=== PATIENT | female | born 2005 | race Two or more races ===

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

== ENCOUNTER 2025-01-15 11:58 | Inpatient (IN) | payer MEDICAID ==
[2025-01-15] VITALS (7 sets, daily range): BP systolic 107–116; BP diastolic 60–74; PULSE 77–111; RESP 15–21; TEMP 97.1–98.1; O2SAT 96–100
[~2025-01-15] VITALS: Ht 160 cm; Wt 74.4 kg
--- NOTE | 2025-01-15 12:20 | ED.PDOC ---
History of Present Illness HPI Comments 19 y/o F, with PMHx of anemia presents to the ED for CC of abnormal labs. Patient reports, that she had labs drawn on 01/11/25 and received a call today (01/15/25) to follow up with the ED for a blood transfusion d/t a low Hbg reading of 7.0. Patient states, that she has been experiencing symptoms of fatigue and weakness for the past x1week. Patient denies active bleeding, current menstruation, nausea, melena, or hematemesis. No other symptoms or modifying factors. Chief Complaint: Abnormal LAB's Time Seen by MD: 12:15 Reviewed Notes: Nurses Notes, Medications, Allergies Allergies: Coded Allergies: NO KNOWN ALLERGIES (Unverified , 07/08/22) Information Source: Patient Mode of Arrival: Ambulatory Severity: Moderate Timing: Days Duration: Since onset Prehospital treatment: None Past Medical History PAST MEDICAL HISTORY: Anemia Surgical History: Denies all surgeries ACID CUTTER History: No Pertinent ACID CUTTER History Family History Family History: Reviewed,noncontributory to illness Social History Smoker: Non-Smoker Alcohol: Denies ETOH Use Drugs: Denies Drug Use Lives In: Home Constitutional: reports: fatigue, weakness; denies: chills, diaphoresis, fever, malaise, sweats, others EENTM: denies: blurred vision, double vision, ear bleeding, ear discharge, ear drainage, ear pain, ear ringing, eye pain, eye redness, hearing loss, mouth pain, mouth swelling, nasal discharge, nose bleeding, nose congestion, nose pain, photophobia, tearing, throat pain, throat swelling, voice changes, others Respiratory: denies: cough, hemoptysis, orthopnea, SOB at rest, shortness of breath, SOB with excertion, stridor, wheezing, others Cardiovascular: denies: chest pain, dizzy spells, diaphoresis, Dyspnea on exertion, edema, irregular heart beat, left arm pain, lightheadedness, palpitations, PND, syncope, others Gastrointestinal: denies: abdomen distended, abdominal pain, blood streaked bowels, constipated, diarrhea, dysphagia, difficulty swallowing, hematemesis, melena, nausea, poor appetite, poor fluid intake, rectal bleeding, rectal pain, vomiting, others Genitourinary: denies: abnormal vagina bleeding, burning, dyspareunia, dysuria, flank pain, frequency, hematuria, incontinence, pain, , vagina discharge, urgency, others Neurological: denies: dizziness, fainting, headache, left sided numbness, left sided weakness, numbness, paresthesia, pre-existing deficit, right sided numbness, right sided weakness, seizure, speech problems, tingling, tremors, weakness, others Musculoskeletal: denies: back pain, gout, joint pain, joint swelling, muscle pain, muscle stiffness, neck pain, others Integumetry: denies: bruises, change in color, change in hair/nails, dryness, laceration, lesions, lumps, rash, wounds, others Allergic/Immunocompromised: denies: Difficulty Healing, Frequent Infections, Hives, Itching, others Hematologic/Lymphatic: denies: anemia, blood clots, easy bleeding, easy bruising, swollen glands, others Endocrine: denies: excessive hunger, excessive sweating, excessive thirst, excessive urination, flushing, intolerance to cold, intolerance to heat, unexplained weight gain, unexplained weight loss, others Psychiatric: denies: anxiety, bipolar disorder, depression, hopeless, panic disorder, schizophrenia, sleepless, suicidal, others All Other Systems: Reviewed and Negative Physical Exam General Appearance: Moderate Distress HEENT: Pale Conjuntivae (L), Pale Conjuntivae (R), Pharynx Normal, TMs Normal Neck: Full Range of Motion, Non-Tender, Normal, Normal Inspection Respiratory: Chest Non-Tender, Lungs Clear, No Accessory Muscle Use, No Respiratory Distress, Normal Breath Sounds Cardiovascular: No Edema, No JVD, No Murmur, No Gallop, Normal Peripheral Pulses, Regular Rate/Rhythm Breast Exam: Deferred Gastrointestinal: No Organomegaly, Non Tender, No Pulsatile Mass, Normal Bowel Sounds, Soft Genitalia: Deferred Pelvic: Deferred Rectal: Deferred Extremities: No calf tenderness, Normal capillary refill, Normal inspection, Normal range of motion, Non-tender, No pedal edema Musculoskeletal : Apperance: Normal Neurologic: Alert, carpenter rough II-XII nml as Tested, Motor Weakness, Normal Affect, Normal Mood, No Sensory Deficits Cerebellar Function: Normal Reflexes: Normal Skin: Dry, Pallor, Warm Lymphatic: No Adenopathy Was a procedure done? Was a procedure done?: No Differential Dx Considerations may include: anemia X-Ray, Labs, Meds, VS Vital Signs Date Time Temp Pulse Resp B/P (MAP) Pulse Ox O2 Delivery O2 Flow Rate FiO2 01/15/25 17:50 97.1 84 15 113/69 (84) 100 97.1 01/15/25 17:50 97.1 84 15 113/69 97.1 01/15/25 17:39 87 17 100 Room Air* 0 21 01/15/25 17:29 97.5 111 21 116/67 97.5 01/15/25 15:50 99.2 80 18 136/52 (80) 100 99.2 01/15/25 12:06 97.7 122 16 145/84 (104) 98 97.7 Lab Test 01/15/25 12:47 01/15/25 12:44 Range/Units White Blood Count 4.2 L 4.4-10.8 10^3/uL Red Blood Count 3.89 L 4.0-5.20 10^6/uL Hemoglobin 7.0 *L 12.2-16.2 g/dL Hematocrit 22.9 L 36.0-46.0 % Mean Corpuscular Volume 58.8 L 80.0-100.0 fL Mean Corpuscular Hemoglobin 17.9 L 28.0-32.0 pg Mean Corpuscular Hemoglobin Concent 30.4 L 32.0-36.0 g/dL Red Cell Distribution Width 17.7 H 11.8-14.3 % Platelet Count 362 140-450 10^3/uL Mean Platelet Volume 6.7 L 6.9-10.8 fL Neutrophils (%) (Auto) 64.3 37.0-80.0 % Lymphocytes (%) (Auto) 26.2 10.0-50.0 % Monocytes (%) (Auto) 6.5 0.0-12.0 % Eosinophils (%) (Auto) 2.4 0.0-7.0 % Basophils (%) (Auto) 0.6 0.0-2.0 % Neutrophils # (Auto) 2.7 1.6-8.6 10 ^3/uL Lymphocytes # (Auto) 1.1 0.4-5.4 10 ^3/uL Monocytes # (Auto) 0.3 0-1.3 10 ^3/uL Eosinophils # (Auto) 0.1 0-0.8 10 ^3/uL Basophils # (Auto) 0 0-0.2 10 ^3/uL Nucleated Red Blood Cells 0.1 % Platelet Estimate Adequate Hypochromasia (manual) Marked Poikilocytosis (manual) Slight Anisocytosis (manual) Slight Microcytosis Marked Tear Drop Cells Few Ovalocytes Few Urine Color Yellow Yellow Urine Clarity Clear Clear Urine pH 5.5 5.0-9.0 Urine Specific [place] 1.030 1.001-1.035 Urine Protein Trace H Negative Urine Ketones Trace Negative Urine Blood Trace H Negative /uL Urine Nitrite Negative Negative Urine Bilirubin Negative Negative Urine Urobilinogen Normal Negative mg/dL Urine Leukocyte Esterase Negative Negative /uL Urine RBC 2 0 - 4 /hpf Urine Microscopic WBC 2 0-5 /HPF Urine Squamous Epithelial Cells Few <5 /hpf Urine Bacteria Few H None Seen /hpf Urine Mucus Few None Seen Urine Glucose Normal Normal mg/dL IV Hep-Lock was established The patient's CBC shows a hemoglobin of 7 and hematocrit 22.9 The patient is symptomatic so we are going to transfuse the patient was 2 units of packed red blood cells The patient's chemistry panel is within normal limits The urine test is negative At this time, the patient is being admitted to the hospitalist The patient will be transfused at this time Time of 1ST Reevaluation: 12:45 Reevaluation 1ST: Unchanged Patient Education/Counseling: Diagnosis, Treatment, Prognosis Family Education/Counseling: Diagnosis, Treatment, Prognosis Departure 1 Departure Time of Disposition: 18:36 Impression: Primary Impression: Severe anemia Additional Impression: Generalized weakness Disposition: ADMITTED INPATIENT Admit to: [facility] Condition: Fair Critical Care Note Critical Care Time?: No Stability Stability form required: Yes Unstable for transfer: Telemetry monitoring (Telemetry monitoring required), ED Physician Assesment (Clinical assesment) Heart Score Heart Score: Heart Score Response (Comments) Value History N/A 0 EKG N/A 0 Age N/A 0 Risk Factors N/A 0 Troponin N/A 0 Total 0 I personally scribed for BRITTNY CEE MD ([email or web address]) on 01/15/25 at 12:20. Electronically submitted by Gifty Chang ([email or web address]). BRITTNY CEE MD Jan 15, 2025 12:20
[2025-01-15 13:12] LABS: Basophils # (auto) 0 10 ^3/uL (0-0.2); Basophils % (auto) 0.6 % (0.0-2.0); Eosinophils # (auto) 0.1 10 ^3/uL (0-0.8); Eosinophils % (auto) 2.4 % (0.0-7.0); Hematocrit 22.9 % (36.0-46.0); Lymphocytes # (auto) 1.1 10 ^3/uL (0.4-5.4); Lymphocytes % (auto) 26.2 % (10.0-50.0); Mean Corpuscular Hemoglobin 17.9 pg (28.0-32.0); Mean Corpuscular Hgb Conc. 30.4 g/dL (32.0-36.0); Mean Corpuscular Volume 58.8 fL (80.0-100.0); Monocytes # (auto) 0.3 10 ^3/uL (0-1.3); Monocytes % (auto) 6.5 % (0.0-12.0); Neutrophils # (auto) 2.7 10 ^3/uL (1.6-8.6); Neutrophils % (auto) 64.3 % (37.0-80.0); Nucleated Red Blood Cells % 0.1 %; Platelet Count (auto) 362 10^3/uL (140-450); Red Blood Cells 3.89 10^6/uL (4.0-5.20); Red Cell Distribution Width 17.7 % (11.8-14.3); White Blood Cell 4.2 10^3/uL (4.4-10.8)
[2025-01-15 13:47] LABS: Urine Bacteria FEW /hpf (None Seen); Urine Blood TRACE /uL (Negative); Urine Clarity Clear (Clear); Urine Color Yellow (Yellow); Urine Mucus FEW (None Seen); Urine Protein, UAD TRACE (Negative); Urine Squamous Epithelial Cell FEW /hpf (<5); Urine Urobilinogen Normal (Negative); Urine WBC 2 /HPF (0-5); Urine pH 5.5 (5.0-9.0)
[2025-01-15 13:55] LABS: Anisocytosis Slight; Hypochromia Marked; Ovalocytes FEW; Platelet Estimate Adequate; Tear Drop Cells FEW
[2025-01-15] MEDS ORDERED: ACETAMINOPHEN 325 MG TAB PO PRN (19:30)
[2025-01-15] MEDS ORDERED: ONDANSETRON HCL 4 MG/2 ML VIAL IV PRN (19:30)
[2025-01-15] MEDS ORDERED: DOCUSATE SOD 100 MG CAP PO PRN (19:30)
[2025-01-15] MEDS: SODIUM CHLORIDE 0.9% 1,000 ML IV SCH (19:30)
[2025-01-15] MEDS ORDERED: HYDROcodone-ACET 5/325MG TAB PO PRN (19:30)
--- NOTE | 2025-01-15 21:39 | DVHHP2 ---
History of Present Illness Reason for Visit: Severe anemia History of Present Illness The patient is a 19-year-old female with past medical history of anemia who presented to [facility] ED for evaluation of abnormal labs. Patient reports that she was called today to follow-up with the ED for abnormal lab results draw on January 11, 2025 hemoglobin of 7.0. Patient states she has been experiencing symptoms of fatigue and weakness for the past 1 week, last menstrual period 12/18/2024, currently on her menstrual period that started on 01/12/2025. Patient was seen and evaluated in the ED, laboratory data shows WBC 4.2, hemoglobin 7.0, hematocrit 22.9, platelets 262, blood pressure 113/69, heart rate 84, temperature 97.1 F, O2 saturation 99% on room air. Patient will receive 1 units of PRBC, please see medication orders section in the computer. On my assessment, patient denies chest pain, no headache, no dizziness, no diaphoresis, no shortness of breath, no nausea, no vomiting, no fever, no chills. Patient was admitted for further evaluation and medical management. Past Medical History Anemia Past Surgical History Denies all surgeries Family History Reviewed, noncontributory to the management of this case. Past Social History The patient lives at home, denies smoking, alcohol or illicit drugs abuse. Review of Systems Constitutional: Yes: Weakness, Other (Fatigue); No: Fever, Chills, Sweats, Malaise Eyes: No: Pain, Vision change, Conjunctivae inflammation, Eyelid inflammation, Other, Redness ENT: No: Ear pain, Ear discharge, Nose pain, Nose discharge, Nose congestion, Mouth pain, Mouth swelling, Throat pain, Throat swelling, Other Respiratory: No: Cough, Dry, Shortness of breath, SOB with excertion, Wheezing, Hemoptysis, Pleuritic Pain, Sputum, Wheezing, Other Cardiovascular: No: Chest Pain, Palpitations, Orthopnea, Paroxysmal Noc. Dysp bethany, Edema, Lt Headedness, Other Gastrointestinal: No: Nausea, Vomiting, Abdominal Pain, Diarrhea, Constipation, Melena, Hematochezia, Other Genitourinary: No Dysuria, No Frequency, No Incontinence, No Hematuria, No Retention, No Other Musculoskeletal: No: other, neck pain, shoulder pain, arm pain, back pain, hand pain, leg pain, foot pain Skin: No: Rash, Lesions, Jaundice, Bruising, Other Neurological: No: Weakness, Numbness, Incoordination, Change in speech, Confusion, Seizures, Other Allergies: Coded Allergies: NO KNOWN ALLERGIES (Unverified , 07/08/22) Medications Current Medications Medications Dose Ordered Sig/Va Route Start Time Stop Time Status Last Admin Dose Admin Sodium Chloride 1,000 ml @ 60 mls/hr [id number] IV 01/15/25 19:30 Acetaminophen/ Hydrocodone Bitart 1 tab Q4HP PRN PO 01/15/25 19:30 Ondansetron HCl 4 mg Q4HP PRN IV 01/15/25 19:30 Docusate Sodium 100 mg BIDPRN PRN PO 01/15/25 19:30 Acetaminophen 650 mg Q6HP PRN PO 01/15/25 19:30 Exam Vital Signs Vital Signs Date Time Temp Pulse Resp B/P (MAP) Pulse Ox O2 Delivery O2 Flow Rate FiO2 01/15/25 21:22 98.1 83 18 107/60 98.1 01/15/25 20:05 96 Room Air* 0 21 General Appearance: Alert, Oriented X3, Cooperative, No acute distress HEENT: Atraumatic, PERRLA, EOMI, Mucous membr. moist/pink Respiratory: Clear to auscultation, Normal air movement Cardiovascular: Regular rate, Normal S1, Normal S2, No murmurs Abdominal: Normal bowel sounds, Soft, No tenderness, No hepatospenomegaly, No masses Extremities: No clubbing, No cyanosis, No edema, Normal pulses, No tenderness/swelling Skin: No rashes, No breakdown, No significant lesion Neuro: Normal speech, Normal tone, Sensation intact, Cranial nerves 3-12 NL, Reflexes 2+, Other (Generalized weakness) Psych/Mental Status: Mental status NL, Mood NL Labs/Xrays Labs Test 01/15/25 12:47 01/15/25 12:44 Range/Units White Blood Count 4.2 L 4.4-10.8 10^3/uL Red Blood Count 3.89 L 4.0-5.20 10^6/uL Hemoglobin 7.0 *L 12.2-16.2 g/dL Hematocrit 22.9 L 36.0-46.0 % Mean Corpuscular Volume 58.8 L 80.0-100.0 fL Mean Corpuscular Hemoglobin 17.9 L 28.0-32.0 pg Mean Corpuscular Hemoglobin Concent 30.4 L 32.0-36.0 g/dL Red Cell Distribution Width 17.7 H 11.8-14.3 % Platelet Count 362 140-450 10^3/uL Mean Platelet Volume 6.7 L 6.9-10.8 fL Neutrophils (%) (Auto) 64.3 37.0-80.0 % Lymphocytes (%) (Auto) 26.2 10.0-50.0 % Monocytes (%) (Auto) 6.5 0.0-12.0 % Eosinophils (%) (Auto) 2.4 0.0-7.0 % Basophils (%) (Auto) 0.6 0.0-2.0 % Neutrophils # (Auto) 2.7 1.6-8.6 10 ^3/uL Lymphocytes # (Auto) 1.1 0.4-5.4 10 ^3/uL Monocytes # (Auto) 0.3 0-1.3 10 ^3/uL Eosinophils # (Auto) 0.1 0-0.8 10 ^3/uL Basophils # (Auto) 0 0-0.2 10 ^3/uL Nucleated Red Blood Cells 0.1 % Platelet Estimate Adequate Hypochromasia (manual) Marked Poikilocytosis (manual) Slight Anisocytosis (manual) Slight Microcytosis Marked Tear Drop Cells Few Ovalocytes Few Urine Color Yellow Yellow Urine Clarity Clear Clear Urine pH 5.5 5.0-9.0 Urine Specific [place] 1.030 1.001-1.035 Urine Protein Trace H Negative Urine Ketones Trace Negative Urine Blood Trace H Negative /uL Urine Nitrite Negative Negative Urine Bilirubin Negative Negative Urine Urobilinogen Normal Negative mg/dL Urine Leukocyte Esterase Negative Negative /uL Urine RBC 2 0 - 4 /hpf Urine Microscopic WBC 2 0-5 /HPF Urine Squamous Epithelial Cells Few <5 /hpf Urine Bacteria Few H None Seen /hpf Urine Mucus Few None Seen Urine Glucose Normal Normal mg/dL Assessment/Plan Assessment/Plan Severe anemia Generalized weakness Plan 1. Admit to telemetry unit 2. Breathing treatment 3. Pain control management 4. Management of fluids and electrolytes 5. Consultation for hospitalist 6. Diagnostic tests chest x-ray 7. DVT prophylaxis on SCDs 8. Repeat labs CBC, CMP in a.m. 9. Continue with current medical management 10. Treatment plan discussed with patient and RN. Patient verbalized understanding. Plan discussed with: Patient, Other (RN) My Orders Orders - NANNETTE TAVERA DNP Procedure Category Date Status Time Allergies ESPERANZA 01/15/25 In Process 19:23 Code Status CODE 01/15/25 Transmitted 19:23 2 Gm Sodium Diet DIET 01/16/25 Transmitted Breakfast Sodium Chloride 0.9% PHA 01/15/25 In Process 19:30 Oxygen Per Hour RT 01/15/25 Transmitted 19:23 Hydrocodone-Acet PHA 01/15/25 In Process 5/325mg Tab ([place] 19:30 Ondansetron Hcl PHA 01/15/25 In Process (Zofran) 19:30 Docusate Sodium PHA 01/15/25 In Process Capsule ([place] 19:30 Fall Risk Precautions ESPERANZA 01/15/[address] 19:23 Complete Blood Count LAB 01/16/25 Verified 04:00 Comprehensive LAB 01/16/25 Verified Metabolic Panel 04:00 Condition: Serious ESPERANZA 01/15/25 In Process 19:23 Acetaminophen Tablet PHA 01/15/25 In Process (Tylenol Tablet) 19:30 Maintain Bed Rest ESPERANZA 01/15/25 In Process 19:23 Sequential ESPERANZA 01/15/25 In Process Compression Device Comprehensive LAB 01/15/25 Logged Metabolic Panel 19:23 Problem List: (1) Severe anemia (2) Generalized weakness Date of Service: Jan 15, 2025 Billing Provider: NANNETTE TAVERA DNP Common Visit Codes: [id number] INP/OBS CARE (HIGH) NANNETTE TAVERA DNP Jan 15, 2025 21:39
[2025-01-15] MEDS ORDERED: NITROGLYCERIN 0.4 MG SL TAB SL PRN (21:45)
[2025-01-15] MEDS ORDERED: MORPHINE SULFATE INJ 2 MG/ml SYRG IV PRN (21:45)
[2025-01-16] VITALS (7 sets, daily range): BP systolic 104–131; BP diastolic 56–83; PULSE 64–106; RESP 14–18; TEMP 97.2–98.1; O2SAT 97–100
[2025-01-16 01:46] LABS: Alkaline Phosphatase 58 U/L (46-116); Anion Gap 10 (5-15); Aspartate Aminotransferase 11 U/L (<34); BUN/Creatinine Ratio 14.1 (10.0-20.0); Blood Urea Nitrogen 10 mg/dL (9-23); Calcium 9.3 mg/dL (8.7-10.4); Carbon Dioxide 21 mmol/L (20-31); Glucose 92 mg/dL (74-106); Sodium 144 mmol/L (136-145); Total Protein 6.5 g/dL (5.7-8.2)
[2025-01-16 01:47] LABS: Bilirubin, Total 0.4 mg/dL (0.2-1.0)
[2025-01-16 01:49] LABS: Alanine Aminotransferase < 9 U/L (7-40); Chloride 113 mmol/L (98-107); Potassium 3.3 mmol/L (3.5-5.1)
[2025-01-16 06:59] LABS: Basophils # (auto) 0 10 ^3/uL (0-0.2); Eosinophils # (auto) 0.2 10 ^3/uL (0-0.8); Monocytes # (auto) 0.5 10 ^3/uL (0-1.3); White Blood Cell 5.9 10^3/uL (4.4-10.8)
[2025-01-16 07:04] LABS: Basophils % (auto) 0.7 % (0.0-2.0); Eosinophils % (auto) 2.9 % (0.0-7.0); Hematocrit 31.5 % (36.0-46.0); Hemoglobin 9.9 g/dL (12.2-16.2); Lymphocytes # (auto) 1.8 10 ^3/uL (0.4-5.4); Lymphocytes % (auto) 30.4 % (10.0-50.0); Mean Corpuscular Hemoglobin 20.4 pg (28.0-32.0); Mean Corpuscular Hgb Conc. 31.5 g/dL (32.0-36.0); Mean Corpuscular Volume 64.7 fL (80.0-100.0); Monocytes % (auto) 8.9 % (0.0-12.0); Neutrophils # (auto) 3.4 10 ^3/uL (1.6-8.6); Neutrophils % (auto) 57.1 % (37.0-80.0); Nucleated Red Blood Cells % 0.2 %; Platelet Count (auto) 297 10^3/uL (140-450); Red Blood Cells 4.87 10^6/uL (4.0-5.20)
[2025-01-16 07:07] LABS: Red Cell Distribution Width 24.1 % (11.8-14.3)
[2025-01-16 07:14] LABS: Albumin 4.2 g/dL (3.2-4.8); Alkaline Phosphatase 58 U/L (46-116); Anion Gap 11 (5-15); Aspartate Aminotransferase 8 U/L (<34); Blood Urea Nitrogen 9 mg/dL (9-23); Calcium 9.4 mg/dL (8.7-10.4); Carbon Dioxide 22 mmol/L (20-31); Glucose 86 mg/dL (74-106); Potassium 3.6 mmol/L (3.5-5.1); Sodium 144 mmol/L (136-145); Total Protein 6.6 g/dL (5.7-8.2)
[2025-01-16 07:15] LABS: Bilirubin, Total 0.4 mg/dL (0.2-1.0)
[2025-01-16 07:33] LABS: Alanine Aminotransferase < 9 U/L (7-40); Chloride 111 mmol/L (98-107)
--- NOTE | 2025-01-16 13:52 | DVHPN2 ---
Reviewed: Care Plan, H&P, Labs, Medications, Previous Orders, Radiology Changes from previous H/P or p: No Changes Eyes: No Pain, No Vision change, No Conjunctivae inflammation, No Eyelid inflammation, No Other, No Redness ENT: No Ear pain, No Ear discharge, No Nose pain, No Nose discharge, No Nose congestion, No Mouth pain, No Mouth swelling, No Throat pain, No Throat swelling, No Other Cardiovascular: No Chest Pain, No Palpitations, No Orthopnea, No Paroxysmal Noc. Dyspnea, No Edema, No Lt Headedness, No Other Respiratory: No Cough, No Dry, No Shortness of breath, No SOB with excertion, No Wheezing, No Hemoptysis, No Pleuritic Pain, No Sputum, No Other Gastrointestinal: No Nausea, No Vomiting, No Abdominal Pain, No Diarrhea, No Constipation, No Melena, No Hematochezia, No Other Genitourinary: No Dysuria, No Frequency, No Incontinence, No Hematuria, No Retention, No Other Musculoskeletal: No other, No neck pain, No shoulder pain, No arm pain, No back pain, No hand pain, No leg pain, No foot pain Skin: No Rash, No Lesions, No Jaundice, No Bruising, No Other Objective Vitals Vital Signs Date Time Temp Pulse Resp B/P (MAP) Pulse Ox O2 Delivery O2 Flow Rate FiO2 01/16/25 09:00 98.1 64 16 104/56 (72) 99 98.1 01/16/25 08:00 Room Air* 0 21 Intake/Output Intake and Output 01/16/25 07:00 Intake Total 1400 ml Output Total 0 ml Balance 1400 ml Intake Oral 0 ml Blood Product 1400 ml Output Urine Total 0 ml Medications Current Medications Medications Dose Ordered Sig/Va Route Start Time Stop Time Status Last Admin Dose Admin Sodium Chloride 1,000 ml @ 60 mls/hr [id number] IV 01/15/25 19:30 01/16/25 09:00 60 MLS/HR Acetaminophen/ Hydrocodone Bitart 1 tab Q4HP PRN PO 01/15/25 19:30 Ondansetron HCl 4 mg Q4HP PRN IV 01/15/25 19:30 Docusate Sodium 100 mg BIDPRN PRN PO 01/15/25 19:30 Acetaminophen 650 mg Q6HP PRN PO 01/15/25 19:30 Nitroglycerin 0.4 mg Q5MINP PRN SL 01/15/25 21:45 Morphine Sulfate 2 mg Q30M PRN IV 01/15/25 21:45 Laboratory Results Laboratory Tests 01/16/25 06:41 Chemistry Test 01/16/25 01:21 01/16/25 06:41 Albumin 4.0 g/dL (3.2-4.8) 4.2 g/dL (3.2-4.8) Calcium Level 9.3 mg/dL (8.7-10.4) 9.4 mg/dL (8.7-10.4) Total Protein 6.5 g/dL (5.7-8.2) 6.6 g/dL (5.7-8.2) LFT Test 01/16/25 01:21 01/16/25 06:41 Alanine Aminotransferase (ALT) < 9 U/L (7-40) < 9 U/L (7-40) Alkaline Phosphatase 58 U/L (46-116) 58 U/L (46-116) Aspartate Amino Transferase (AST) 11 U/L (<34) 8 U/L (<34) Total Bilirubin 0.4 mg/dL (0.2-1.0) 0.4 mg/dL (0.2-1.0) Urinalysis Test 01/15/25 12:44 Urine Color Yellow (Yellow) Urine Clarity Clear (Clear) Urine pH 5.5 (5.0-9.0) Urine Specific [place] 1.030 (1.001-1.035) Urine Protein Trace (Negative) H Urine Ketones Trace (Negative) Urine Blood Trace /uL (Negative) H Urine Nitrite Negative (Negative) Urine Bilirubin Negative (Negative) Urine Urobilinogen Normal mg/dL (Negative) Urine Leukocyte Esterase Negative /uL (Negative) Urine RBC 2 /hpf (0 - 4) Urine Microscopic WBC 2 /HPF (0-5) Urine Squamous Epithelial Cells Few /hpf (<5) Urine Bacteria Few /hpf (None Seen) H Urine Mucus Few (None Seen) Urine Glucose Normal mg/dL (Normal) Labs and/or images reviewed: Labs reviewed by me, Image(s) reviewed by me Assessment/Plan Assessment/Plan Severe anemia hemoglobin 7.0, improved to 9.8 after 1 unit of RBC transfused Generalized weakness Plan discussed with: Patient Date of Service: Jan 16, 2025 Billing Provider: KRISTOPHER BARRERA MD Common Visit Codes: [id number] INP/OBS CARE(HIGH) KRISTOPHER BARRERA MD Jan 16, 2025 13:52
[2025-01-17] VITALS (8 sets, daily range): BP systolic 102–118; BP diastolic 55–80; PULSE 57–79; RESP 16–18; TEMP 97.3–98.4; O2SAT 97–100
--- NOTE | 2025-01-17 08:03 | DVHPN2 ---
Reviewed: Care Plan, H&P, Labs, Medications, Previous Orders, Radiology Changes from previous H/P or p: No Changes Eyes: No Pain, No Vision change, No Conjunctivae inflammation, No Eyelid inflammation, No Other, No Redness ENT: No Ear pain, No Ear discharge, No Nose pain, No Nose discharge, No Nose congestion, No Mouth pain, No Mouth swelling, No Throat pain, No Throat swelling, No Other Cardiovascular: No Chest Pain, No Palpitations, No Orthopnea, No Paroxysmal Noc. Dyspnea, No Edema, No Lt Headedness, No Other Respiratory: No Cough, No Dry, No Shortness of breath, No SOB with excertion, No Wheezing, No Hemoptysis, No Pleuritic Pain, No Sputum, No Other Gastrointestinal: No Nausea, No Vomiting, No Abdominal Pain, No Diarrhea, No Constipation, No Melena, No Hematochezia, No Other Genitourinary: No Dysuria, No Frequency, No Incontinence, No Hematuria, No Retention, No Other Musculoskeletal: No other, No neck pain, No shoulder pain, No arm pain, No back pain, No hand pain, No leg pain, No foot pain Skin: No Rash, No Lesions, No Jaundice, No Bruising, No Other Objective Vitals Vital Signs Date Time Temp Pulse Resp B/P (MAP) Pulse Ox O2 Delivery O2 Flow Rate FiO2 01/17/25 05:00 97.3 75 18 102/80 (87) 100 97.3 01/16/25 20:00 Room Air* 0 21 Intake/Output Intake and Output 01/17/25 07:00 Intake Total 2450 ml Balance 2450 ml Intake Oral 1850 ml IV Total 600 ml # Voids 5 Medications Current Medications Medications Dose Ordered Sig/Va Route Start Time Stop Time Status Last Admin Dose Admin Sodium Chloride 1,000 ml @ 60 mls/hr [id number] IV 01/15/25 19:30 01/16/25 09:00 60 MLS/HR Acetaminophen/ Hydrocodone Bitart 1 tab Q4HP PRN PO 01/15/25 19:30 Ondansetron HCl 4 mg Q4HP PRN IV 01/15/25 19:30 Docusate Sodium 100 mg BIDPRN PRN PO 01/15/25 19:30 Acetaminophen 650 mg Q6HP PRN PO 01/15/25 19:30 Nitroglycerin 0.4 mg Q5MINP PRN SL 01/15/25 21:45 Morphine Sulfate 2 mg Q30M PRN IV 01/15/25 21:45 Laboratory Results Laboratory Tests 01/16/25 06:41 Urinalysis Test 01/15/25 12:44 Urine Color Yellow (Yellow) Urine Clarity Clear (Clear) Urine pH 5.5 (5.0-9.0) Urine Specific [place] 1.030 (1.001-1.035) Urine Protein Trace (Negative) H Urine Ketones Trace (Negative) Urine Blood Trace /uL (Negative) H Urine Nitrite Negative (Negative) Urine Bilirubin Negative (Negative) Urine Urobilinogen Normal mg/dL (Negative) Urine Leukocyte Esterase Negative /uL (Negative) Urine RBC 2 /hpf (0 - 4) Urine Microscopic WBC 2 /HPF (0-5) Urine Squamous Epithelial Cells Few /hpf (<5) Urine Bacteria Few /hpf (None Seen) H Urine Mucus Few (None Seen) Urine Glucose Normal mg/dL (Normal) Labs and/or images reviewed: Labs reviewed by me, Image(s) reviewed by me Assessment/Plan Assessment/Plan Severe anemia hemoglobin 7.0, improved to 9.8 after 2 unit of RBC transfusion, GI consult pending Denies any excessive menstrual bleeding test is negative History of use of Excedrin aspirin and ibuprofen Iron panel and B12 levels were pending No previous history of blood transfusions History of stress fractures while in the [employer] Generalized weakness MADELYN Jurado at bedside Plan discussed with: Patient My Orders Orders - KRISTOPHER BARRERA MD Procedure Category Date Status Time * Gi Dvh [employer] CONS 01/16/25 Transmitted 14:03 Complete Blood Count LAB 01/17/25 Logged 07:46 Pelvic US 01/17/25 Logged 07:46 Date of Service: Jan 17, 2025 Billing Provider: KRISTOPHER BARRERA MD Common Visit Codes: [id number] INP/OBS CARE(HIGH) KRISTOPHER BARRERA MD Jan 17, 2025 08:03
--- NOTE | 2025-01-17 09:04 | DVH ---
PELVIC ULTRASOUND (TRANSABDOMINAL) HISTORY: severe anemia r/o pelvic pathology COMPARISON: None TECHNIQUE: Grayscale images were obtained of the pelvis through a transabdominal approach. FINDINGS: UTERUS: Size: 7.7 x 3.3 x 3.8 There are no uterine fibroids. Endometrial thickness: 2.6mm There is nonspecific fluid within the endometrial canal. RIGHT ADNEXA: Right ovarian size: 3.5 x 1.8 x 3.2 There is no ovarian or adnexal mass. There is normal color flow in the ovary. LEFT ADNEXA: Left ovarian size: 3 x 1.5 x 1.9 cm There is no ovarian or adnexal mass. There is normal color flow in the ovary. No significant free fluid in the pelvis. IMPRESSION: 1. Nonspecific minimal fluid within the endometrium, otherwise unremarkable examination
[2025-01-17 09:14] LABS: Basophils # (auto) 0 10 ^3/uL (0-0.2); Hemoglobin 10.1 g/dL (12.2-16.2); Lymphocytes # (auto) 1.3 10 ^3/uL (0.4-5.4); Monocytes # (auto) 0.4 10 ^3/uL (0-1.3); White Blood Cell 5.3 10^3/uL (4.4-10.8)
[2025-01-17 09:15] LABS: Basophils % (auto) 0.6 % (0.0-2.0); Eosinophils # (auto) 0.2 10 ^3/uL (0-0.8); Eosinophils % (auto) 4.3 % (0.0-7.0); Hematocrit 32.3 % (36.0-46.0); Lymphocytes % (auto) 24.7 % (10.0-50.0); Mean Corpuscular Hemoglobin 20.4 pg (28.0-32.0); Mean Corpuscular Hgb Conc. 31.3 g/dL (32.0-36.0); Mean Corpuscular Volume 65.1 fL (80.0-100.0); Monocytes % (auto) 7.4 % (0.0-12.0); Neutrophils # (auto) 3.3 10 ^3/uL (1.6-8.6); Nucleated Red Blood Cells % 0.2 %; Platelet Count (auto) 316 10^3/uL (140-450); Red Blood Cells 4.96 10^6/uL (4.0-5.20)
[2025-01-17 09:16] LABS: % Iron Saturation 5.4 % (15-50)
[2025-01-17 09:17] LABS: Red Cell Distribution Width 23.5 % (11.8-14.3)
--- NOTE | 2025-01-17 23:00 | DVHINCON2 ---
Date of service: Jan 17, 2025 Reason for Consultation Anemia History of Present Illness 19 y/o F pt with PMH of anemia admitted with low Hb. She reports no active GIB/hematuria/menorrhagia/epiastaxis/diarrhea/abd pain/N/V/wt loss. She admits to intermittent mild hematochezia, with hard stools 3 months ago, none since then. She had menorrhagia 3 yrs ago, was on OCP, no menorrhagia since past 1 year. No Fhx of GI malignancy, Denies ASA/NSAIDs/blood thinner intake. No EGD/colo prior. Past Medical History As mentioned above Past Surgical History None Family History: Patient reports no known family medical history. Allergies: Coded Allergies: NO KNOWN ALLERGIES (Unverified , 07/08/22) Review of Systems 14 point ROS negative except mentioned above Vital Signs Vital Signs Date Time Temp Pulse Resp B/P (MAP) Pulse Ox O2 Delivery O2 Flow Rate FiO2 01/17/25 21:00 97.8 67 17 106/70 (82) 100 97.8 01/17/25 20:00 Room Air* 0 21 Physical Exam GE: in no distress CVS: S1S2+ Lungs: Clear Abdomen: soft, non-distended, non-tender, BS+ Labs/Diagnostic Data Labs Test 01/17/25 08:45 01/16/25 06:41 01/15/25 12:47 01/15/25 12:44 Range/Units White Blood Count 5.3 4.4-10.8 10^3/uL Red Blood Count 4.96 4.0-5.20 10^6/uL Hemoglobin 10.1 L 12.2-16.2 g/dL Hematocrit 32.3 L 36.0-46.0 % Mean Corpuscular Volume 65.1 L 80.0-100.0 fL Mean Corpuscular Hemoglobin 20.4 L 28.0-32.0 pg Mean Corpuscular Hemoglobin Concent 31.3 L 32.0-36.0 g/dL Red Cell Distribution Width 23.5 H 11.8-14.3 % Platelet Count 316 140-450 10^3/uL Mean Platelet Volume 8.1 6.9-10.8 fL Neutrophils (%) (Auto) 63.0 37.0-80.0 % Lymphocytes (%) (Auto) 24.7 10.0-50.0 % Monocytes (%) (Auto) 7.4 0.0-12.0 % Eosinophils (%) (Auto) 4.3 0.0-7.0 % Basophils (%) (Auto) 0.6 0.0-2.0 % Neutrophils # (Auto) 3.3 1.6-8.6 10 ^3/uL Lymphocytes # (Auto) 1.3 0.4-5.4 10 ^3/uL Monocytes # (Auto) 0.4 0-1.3 10 ^3/uL Eosinophils # (Auto) 0.2 0-0.8 10 ^3/uL Basophils # (Auto) 0 0-0.2 10 ^3/uL Nucleated Red Blood Cells 0.2 % Iron Level 23 L 50-170 ug/dL Total Iron Binding Capacity 423 250-425 ug/dL Percent Iron Saturation 5.4 L 15-50 % Sodium Level 144 136-145 mmol/L Potassium Level 3.6 3.5-5.1 mmol/L Chloride Level 111 H 98-107 mmol/L Carbon Dioxide Level 22 20-31 mmol/L Anion Gap 11 5-15 Blood Urea Nitrogen 9 9-23 mg/dL Creatinine 0.69 0.550-1.02 mg/dL Glomerular Filtration Rate Calc 127 >90 mL/min BUN/Creatinine Ratio 13.0 10.0-20.0 Serum Glucose 86 74-106 mg/dL Calcium Level 9.4 8.7-10.4 mg/dL Total Bilirubin 0.4 0.2-1.0 mg/dL Aspartate Amino Transferase (AST) 8 <34 U/L Alanine Aminotransferase (ALT) < 9 7-40 U/L Alkaline Phosphatase 58 46-116 U/L Total Protein 6.6 5.7-8.2 g/dL Albumin 4.2 3.2-4.8 g/dL Beta HCG, Quantitative < 1.5 L 1.5-4.2 mIU/mL Platelet Estimate Adequate Hypochromasia (manual) Marked Poikilocytosis (manual) Slight Anisocytosis (manual) Slight Microcytosis Marked Tear Drop Cells Few Ovalocytes Few Urine Color Yellow Yellow Urine Clarity Clear Clear Urine pH 5.5 5.0-9.0 Urine Specific [place] 1.030 1.001-1.035 Urine Protein Trace H Negative Urine Ketones Trace Negative Urine Blood Trace H Negative /uL Urine Nitrite Negative Negative Urine Bilirubin Negative Negative Urine Urobilinogen Normal Negative mg/dL Urine Leukocyte Esterase Negative Negative /uL Urine RBC 2 0 - 4 /hpf Urine Microscopic WBC 2 0-5 /HPF Urine Squamous Epithelial Cells Few <5 /hpf Urine Bacteria Few H None Seen /hpf Urine Mucus Few None Seen Urine Glucose Normal Normal mg/dL Assessment #Microcytic chronic anemia wo overt GIB #Intermittent mild hematochezia, likely hemorrhoid bleed. Last episode 3 months ago -Monitor Hb, s/p PRBC transfusion, improved Hb -reviewed 2021 CTAP results, no significant GI pathology noted -Had long discussion with pt. Recommend EGD/colonoscopy for further eval, as no menorrhagia or active/significant GIB this hospitalization or out pt. Pt denied colonoscopy, agreeable for EGD only. Will discuss with Dr Gotti, for EGD tomorrow or as out pt. Pt is well informed. Keep NPO after midnight for now -Check iron panel/ferritin, B12 and folate level. -GI clinic f/u with Dr Luna or Dr Gotti as out pt after dc Thank you for the consult Plan discussed with: Patient AMAURY VERONICA MD Jan 17, 2025 23:00
[2025-01-18] VITALS (8 sets, daily range): BP systolic 96–111; BP diastolic 57–74; PULSE 62–82; RESP 16–19; TEMP 97.6–98.2; O2SAT 98–100
--- NOTE | 2025-01-18 08:32 | DVHPN2 ---
Reviewed: Care Plan, H&P, Labs, Medications, Previous Orders, Radiology Changes from previous H/P or p: No Changes Eyes: No Pain, No Vision change, No Conjunctivae inflammation, No Eyelid inflammation, No Other, No Redness ENT: No Ear pain, No Ear discharge, No Nose pain, No Nose discharge, No Nose congestion, No Mouth pain, No Mouth swelling, No Throat pain, No Throat swelling, No Other Cardiovascular: No Chest Pain, No Palpitations, No Orthopnea, No Paroxysmal Noc. Dyspnea, No Edema, No Lt Headedness, No Other Respiratory: No Cough, No Dry, No Shortness of breath, No SOB with excertion, No Wheezing, No Hemoptysis, No Pleuritic Pain, No Sputum, No Other Gastrointestinal: No Nausea, No Vomiting, No Abdominal Pain, No Diarrhea, No Constipation, No Melena, No Hematochezia, No Other Genitourinary: No Dysuria, No Frequency, No Incontinence, No Hematuria, No Retention, No Other Musculoskeletal: No other, No neck pain, No shoulder pain, No arm pain, No back pain, No hand pain, No leg pain, No foot pain Skin: No Rash, No Lesions, No Jaundice, No Bruising, No Other Objective Vitals Vital Signs Date Time Temp Pulse Resp B/P (MAP) Pulse Ox O2 Delivery O2 Flow Rate FiO2 01/18/25 05:00 98.2 62 17 96/57 (70) 100 98.2 01/17/25 20:00 Room Air* 0 21 Intake/Output Intake and Output 01/18/25 07:00 Intake Total 1500 ml Balance 1500 ml Intake Oral 1500 ml # Voids 15 # Bowel Movements 1 Medications Current Medications Medications Dose Ordered Sig/Va Route Start Time Stop Time Status Last Admin Dose Admin Sodium Chloride 1,000 ml @ 60 mls/hr [id number] IV 01/15/25 19:30 01/18/25 07:52 60 MLS/HR Acetaminophen/ Hydrocodone Bitart 1 tab Q4HP PRN PO 01/15/25 19:30 Ondansetron HCl 4 mg Q4HP PRN IV 01/15/25 19:30 Docusate Sodium 100 mg BIDPRN PRN PO 01/15/25 19:30 Acetaminophen 650 mg Q6HP PRN PO 01/15/25 19:30 Nitroglycerin 0.4 mg Q5MINP PRN SL 01/15/25 21:45 Morphine Sulfate 2 mg Q30M PRN IV 01/15/25 21:45 Laboratory Results Laboratory Tests 01/16/25 06:41 01/17/25 08:45 Urinalysis Test 01/15/25 12:44 Urine Color Yellow (Yellow) Urine Clarity Clear (Clear) Urine pH 5.5 (5.0-9.0) Urine Specific [place] 1.030 (1.001-1.035) Urine Protein Trace (Negative) H Urine Ketones Trace (Negative) Urine Blood Trace /uL (Negative) H Urine Nitrite Negative (Negative) Urine Bilirubin Negative (Negative) Urine Urobilinogen Normal mg/dL (Negative) Urine Leukocyte Esterase Negative /uL (Negative) Urine RBC 2 /hpf (0 - 4) Urine Microscopic WBC 2 /HPF (0-5) Urine Squamous Epithelial Cells Few /hpf (<5) Urine Bacteria Few /hpf (None Seen) H Urine Mucus Few (None Seen) Urine Glucose Normal mg/dL (Normal) Labs and/or images reviewed: Labs reviewed by me, Image(s) reviewed by me Assessment/Plan Assessment/Plan Severe anemia hemoglobin 7.0, improved to 9.8 after 2 unit of RBC transfusion, GI consult by GI appreciated Denies any excessive menstrual bleeding test is negative History of use of Excedrin aspirin and ibuprofen Severe iron deficiency anemia No previous history of blood transfusions History of stress fractures while in the [employer] Generalized weakness Possible EGD today Plan discussed with: Patient Date of Service: Jan 18, 2025 Billing Provider: KRISTOPHER BARRERA MD Common Visit Codes: [id number] INP/OBS CARE(HIGH) KRISTOPHER BARRERA MD Jan 18, 2025 08:32
--- NOTE | 2025-01-18 13:31 | DVHPN2 ---
Subjective No changes Reviewed: Care Plan, H&P, Labs, Medications, Previous Orders, Radiology Changes from previous H/P or p: No Changes Eyes: No Pain, No Vision change, No Conjunctivae inflammation, No Eyelid inflammation, No Other, No Redness ENT: No Ear pain, No Ear discharge, No Nose pain, No Nose discharge, No Nose congestion, No Mouth pain, No Mouth swelling, No Throat pain, No Throat swelling, No Other Cardiovascular: No Chest Pain, No Palpitations, No Orthopnea, No Paroxysmal Noc. Dyspnea, No Edema, No Lt Headedness, No Other Respiratory: No Cough, No Dry, No Shortness of breath, No SOB with excertion, No Wheezing, No Hemoptysis, No Pleuritic Pain, No Sputum, No Other Gastrointestinal: No Nausea, No Vomiting, No Abdominal Pain, No Diarrhea, No Constipation, No Melena, No Hematochezia, No Other Genitourinary: No Dysuria, No Frequency, No Incontinence, No Hematuria, No Retention, No Other Musculoskeletal: No other, No neck pain, No shoulder pain, No arm pain, No back pain, No hand pain, No leg pain, No foot pain Skin: No Rash, No Lesions, No Jaundice, No Bruising, No Other Objective Vitals Vital Signs Date Time Temp Pulse Resp B/P (MAP) Pulse Ox O2 Delivery O2 Flow Rate FiO2 01/18/25 08:38 97.9 76 16 111/62 (78) 100 97.9 01/18/25 08:00 Room Air* 0 21 Intake/Output Intake and Output 01/18/25 07:00 Intake Total 1500 ml Balance 1500 ml Intake Oral 1500 ml # Voids 15 # Bowel Movements 1 General Appearance: Alert, Oriented X3, Cooperative, No acute distress, mild distress, moderate distress, severe distress, Other Lungs: Clear to auscultation, Normal air movement, Other Cardiovascular: Regular rate, Normal S1, Normal S2, No murmurs, Gallops, Rubs, Other Abdomen: Normal bowel sounds, Soft, No tenderness, No hepatospenomegaly, No masses, Other Medications Current Medications Medications Dose Ordered Sig/Va Route Start Time Stop Time Status Last Admin Dose Admin Sodium Chloride 1,000 ml @ 60 mls/hr [id number] IV 01/15/25 19:30 01/18/25 07:52 60 MLS/HR Acetaminophen/ Hydrocodone Bitart 1 tab Q4HP PRN PO 01/15/25 19:30 Ondansetron HCl 4 mg Q4HP PRN IV 01/15/25 19:30 Docusate Sodium 100 mg BIDPRN PRN PO 01/15/25 19:30 Acetaminophen 650 mg Q6HP PRN PO 01/15/25 19:30 Nitroglycerin 0.4 mg Q5MINP PRN SL 01/15/25 21:45 Morphine Sulfate 2 mg Q30M PRN IV 01/15/25 21:45 Laboratory Results Laboratory Tests 01/16/25 06:41 01/17/25 08:45 Urinalysis Test 01/15/25 12:44 Urine Color Yellow (Yellow) Urine Clarity Clear (Clear) Urine pH 5.5 (5.0-9.0) Urine Specific [place] 1.030 (1.001-1.035) Urine Protein Trace (Negative) H Urine Ketones Trace (Negative) Urine Blood Trace /uL (Negative) H Urine Nitrite Negative (Negative) Urine Bilirubin Negative (Negative) Urine Urobilinogen Normal mg/dL (Negative) Urine Leukocyte Esterase Negative /uL (Negative) Urine RBC 2 /hpf (0 - 4) Urine Microscopic WBC 2 /HPF (0-5) Urine Squamous Epithelial Cells Few /hpf (<5) Urine Bacteria Few /hpf (None Seen) H Urine Mucus Few (None Seen) Urine Glucose Normal mg/dL (Normal) Labs and/or images reviewed: Labs reviewed by me, Image(s) reviewed by me Assessment/Plan Assessment/Plan Microcytic chronic anemia Intermittent mild hematochezia Plan Discussed with Dr. Gotti Scheduled for EGD tomorrow 01/19/2025. Discussed risks benefits and alternatives of procedure and sedation, patient understands and agrees NPO after midnight Plan discussed with: Patient, Other (RN) My Orders Orders - GERRY BARRERA Procedure Category Date Status Time Obtain Consent For: ORDERS 01/18/25 Verified 13:27 Npo (Nothing By DIET 01/18/25 Verified Mouth) Diet Dinner Obtain Consent For ESPERANZA 01/18/25 Verified Anesthesia 13:27 Date of Service: Jan 18, 2025 Billing Provider: GERRY BARRERA Common Visit Codes: [id number] INP/OBS CARE(HIGH) GERRY BARRERA Jan 18, 2025 13:31
[2025-01-18 14:27] LABS: INR 0.98 (0.9-1.15); Prothrombin Time 10.4 sec (9.3-11.8)
[2025-01-19] VITALS (9 sets, daily range): BP systolic 99–126; BP diastolic 54–83; PULSE 53–115; RESP 10–20; TEMP 97.3–98.2; O2SAT 99–100
--- NOTE | 2025-01-19 08:14 | DVHPN2 ---
Reviewed: Care Plan, H&P, Labs, Medications, Previous Orders, Radiology Changes from previous H/P or p: No Changes Eyes: No Pain, No Vision change, No Conjunctivae inflammation, No Eyelid inflammation, No Other, No Redness ENT: No Ear pain, No Ear discharge, No Nose pain, No Nose discharge, No Nose congestion, No Mouth pain, No Mouth swelling, No Throat pain, No Throat swelling, No Other Cardiovascular: No Chest Pain, No Palpitations, No Orthopnea, No Paroxysmal Noc. Dyspnea, No Edema, No Lt Headedness, No Other Respiratory: No Cough, No Dry, No Shortness of breath, No SOB with excertion, No Wheezing, No Hemoptysis, No Pleuritic Pain, No Sputum, No Other Gastrointestinal: No Nausea, No Vomiting, No Abdominal Pain, No Diarrhea, No Constipation, No Melena, No Hematochezia, No Other Genitourinary: No Dysuria, No Frequency, No Incontinence, No Hematuria, No Retention, No Other Musculoskeletal: No other, No neck pain, No shoulder pain, No arm pain, No back pain, No hand pain, No leg pain, No foot pain Skin: No Rash, No Lesions, No Jaundice, No Bruising, No Other Objective Vitals Vital Signs Date Time Temp Pulse Resp B/P (MAP) Pulse Ox O2 Delivery O2 Flow Rate FiO2 01/19/25 05:00 97.6 53 18 126/83 (97) 100 97.6 01/18/25 20:00 Room Air* 0 21 Intake/Output Intake and Output 01/19/25 07:00 Intake Total 1640 ml Balance 1640 ml Intake Oral 1640 ml # Voids 12 # Bowel Movements 1 General Appearance: Alert, Oriented X3, Cooperative, No acute distress, mild distress, moderate distress, severe distress, Other Lungs: Clear to auscultation, Normal air movement, Other Cardiovascular: Regular rate, Normal S1, Normal S2, No murmurs, Gallops, Rubs, Other Abdomen: Normal bowel sounds, Soft, No tenderness, No hepatospenomegaly, No masses, Other Medications Current Medications Medications Dose Ordered Sig/Va Route Start Time Stop Time Status Last Admin Dose Admin Sodium Chloride 1,000 ml @ 60 mls/hr [id number] IV 01/15/25 19:30 01/18/25 07:52 60 MLS/HR Acetaminophen/ Hydrocodone Bitart 1 tab Q4HP PRN PO 01/15/25 19:30 Ondansetron HCl 4 mg Q4HP PRN IV 01/15/25 19:30 Docusate Sodium 100 mg BIDPRN PRN PO 01/15/25 19:30 Acetaminophen 650 mg Q6HP PRN PO 01/15/25 19:30 Nitroglycerin 0.4 mg Q5MINP PRN SL 01/15/25 21:45 Morphine Sulfate 2 mg Q30M PRN IV 01/15/25 21:45 Laboratory Results Laboratory Tests 01/16/25 06:41 01/17/25 08:45 Coagulation Test 01/18/25 14:00 Prothrombin Time 10.4 sec (9.3-11.8) Prothrombin Time INR 0.98 (0.9-1.15) Urinalysis Test 01/15/25 12:44 Urine Color Yellow (Yellow) Urine Clarity Clear (Clear) Urine pH 5.5 (5.0-9.0) Urine Specific [place] 1.030 (1.001-1.035) Urine Protein Trace (Negative) H Urine Ketones Trace (Negative) Urine Blood Trace /uL (Negative) H Urine Nitrite Negative (Negative) Urine Bilirubin Negative (Negative) Urine Urobilinogen Normal mg/dL (Negative) Urine Leukocyte Esterase Negative /uL (Negative) Urine RBC 2 /hpf (0 - 4) Urine Microscopic WBC 2 /HPF (0-5) Urine Squamous Epithelial Cells Few /hpf (<5) Urine Bacteria Few /hpf (None Seen) H Urine Mucus Few (None Seen) Urine Glucose Normal mg/dL (Normal) Labs and/or images reviewed: Labs reviewed by me, Image(s) reviewed by me Assessment/Plan Assessment/Plan Severe anemia hemoglobin 7.0, improved to 9.8 after 2 unit of RBC transfusion, GI Dr. Geovanna Gotti planning for EGD today Denies any excessive menstrual bleeding test is negative History of use of Excedrin aspirin and ibuprofen Severe chronic iron deficiency anemia Plan discussed with: Patient Date of Service: Jan 19, 2025 Billing Provider: KRISTOPHER BARRERA MD Common Visit Codes: [id number] INP/OBS CARE(HIGH) KRISTOPHER BARRERA MD Jan 19, 2025 08:14
[2025-01-19] MEDS ORDERED: SODIUM CHLORIDE LOCK 10 ML ONE (12:26)
[2025-01-19] MEDS: LIDOCAINE VISCOUS 2% 15ML UD ONE (14:59)
[2025-01-19] MEDS: MIDAZOLAM HCL 5 MG/ML-1ML VIAL ONE (15:00)
[2025-01-19] MEDS: diphenhdrAMINE HCL 50 MG/1 ML VL ONE (15:00)
[2025-01-19] MEDS: fentaNYL CITRATE 100 MCG/2 ML VL ONE (15:00)
--- NOTE | 2025-01-19 15:24 | DVHOP2 ---
Operative Report DATE OF OPERATION: 01/19/25 PROCEDURE: Upper Endoscopy with biopsy. PREOPERATIVE INDICATION: The patient is a 19 -year-old female undergoing endoscopy for iron-deficiency anemia POSTOPERATIVE DIAGNOSES: 1. 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 Minimal gastritis otherwise essentially normal endoscopic examination up to the 2nd and 3rd part of the duodenum PROCEDURE PERFORMED BY: Clotilde Gotti GI NURSE: Erna SCOPE: Olympus videoendoscope. ASA CLASS: 1 PREOPERATIVE MEDICATIONS: Versed 4 mg, Fentanyl 100 mcg, Benadryl 50 mg I administered moderate sedation throughout this _10_ minutes procedure. An independent trained observer pushed medications at my direction, and monitored the patient's level of consciousness and physiological status throughout. PROCEDURE IN DETAIL: After obtaining an informed consent, the patient was placed on left lateral decubitus position. The patient was then sedated with the above medications. A bite block was placed between her teeth. The endoscope was then passed through the oropharynx, into the esophagus, and through the stomach and pylorus up to the second and third part of the duodenum. The endoscope was then withdrawn. The 2nd and 3rd part of the duodenum and the duodenal bulb were normal. Duodenal biopsies were obtained. The pre-pyloric area antrum and body were essentially normal except for minimal hyperemia. Gastric biopsies were obtained. On retroflexion the fundus cardia and angularis were normal. The endoscope was then withdrawn into the distal esophagus. Patient had a 5 mm extension of columnar epithelium into the distal esophagus from which biopsies were obtained. The remaining distal and proximal esophagus and oropharynx were unremarkable. There was no fresh or old blood in the stomach The patient tolerated the procedure well without difficulty. COMPLICATIONS : None SPECIMENS: Duodenal biopsies Gastric biopsies GE junction biopsies DISPOSITION: Transfer back to the floor Stable PLAN: 1. Await for biopsy result 2. Protonix 40 mg p.o. daily 3. Resume GI soft diet advance as tolerated 4. Start her on iron pills with iron sulfate 325 mg p.o. twice a day 5. Likely source of her anemia is menorrhagia but an outpatient further workup including hematology evaluation can be done for iron-deficiency anemia if it persists 6. Outpatient follow up with me in 4-6 weeks to monitor labs, patient is cleared for discharge from GI point of view CLOTILDE GOTTI MD Jan 19, 2025 15:24
[2025-01-19] MEDS: PANTOPRAZOLE 40 MG TAB PO ONE (16:11)
[2025-01-19] MEDS: FERROUS SULFATE 325mg EC TAB PO SCH (17:17)
[2025-01-20 01:00] VITALS: BP 93/46; PULSE 73; RESP 19; TEMP 98.3; O2SAT 98
[2025-01-20 05:00] VITALS: BP 96/47; PULSE 72; RESP 20; TEMP 98.1; O2SAT 98
[2025-01-20 08:00] VITALS: PULSE 79
[2025-01-20] MEDS ORDERED: FERR-7 PO (08:27)
--- NOTE | 2025-01-20 08:27 | DVHPN2 ---
Reviewed: Care Plan, H&P, Labs, Medications, Previous Orders, Radiology Changes from previous H/P or p: No Changes Eyes: No Pain, No Vision change, No Conjunctivae inflammation, No Eyelid inflammation, No Other, No Redness ENT: No Ear pain, No Ear discharge, No Nose pain, No Nose discharge, No Nose congestion, No Mouth pain, No Mouth swelling, No Throat pain, No Throat swelling, No Other Cardiovascular: No Chest Pain, No Palpitations, No Orthopnea, No Paroxysmal Noc. Dyspnea, No Edema, No Lt Headedness, No Other Respiratory: No Cough, No Dry, No Shortness of breath, No SOB with excertion, No Wheezing, No Hemoptysis, No Pleuritic Pain, No Sputum, No Other Gastrointestinal: No Nausea, No Vomiting, No Abdominal Pain, No Diarrhea, No Constipation, No Melena, No Hematochezia, No Other Genitourinary: No Dysuria, No Frequency, No Incontinence, No Hematuria, No Retention, No Other Musculoskeletal: No other, No neck pain, No shoulder pain, No arm pain, No back pain, No hand pain, No leg pain, No foot pain Skin: No Rash, No Lesions, No Jaundice, No Bruising, No Other Objective Vitals Vital Signs Date Time Temp Pulse Resp B/P (MAP) Pulse Ox O2 Delivery O2 Flow Rate FiO2 01/20/25 05:00 98.1 72 20 96/47 (63) 98 98.1 01/19/25 20:00 Room Air* 0 21 Intake/Output Intake and Output 01/20/25 07:00 Intake Total 525 ml Balance 525 ml Intake Oral 500 ml IV Total 25 ml # Voids 11 # Bowel Movements 3 General Appearance: Alert, Oriented X3, Cooperative, No acute distress, mild distress, moderate distress, severe distress, Other Lungs: Clear to auscultation, Normal air movement, Other Cardiovascular: Regular rate, Normal S1, Normal S2, No murmurs, Gallops, Rubs, Other Abdomen: Normal bowel sounds, Soft, No tenderness, No hepatospenomegaly, No masses, Other Medications Current Medications Medications Dose Ordered Sig/Va Route Start Time Stop Time Status Last Admin Dose Admin Sodium Chloride 1,000 ml @ 60 mls/hr [id number] IV 01/15/25 19:30 01/18/25 07:52 60 MLS/HR Acetaminophen/ Hydrocodone Bitart 1 tab Q4HP PRN PO 01/15/25 19:30 Ondansetron HCl 4 mg Q4HP PRN IV 01/15/25 19:30 Docusate Sodium 100 mg BIDPRN PRN PO 01/15/25 19:30 Acetaminophen 650 mg Q6HP PRN PO 01/15/25 19:30 Nitroglycerin 0.4 mg Q5MINP PRN SL 01/15/25 21:45 Morphine Sulfate 2 mg Q30M PRN IV 01/15/25 21:45 Ferrous Sulfate 325 mg BIDWM PO 01/19/25 18:00 01/20/25 07:59 325 MG Laboratory Results Laboratory Tests 01/16/25 06:41 01/17/25 08:45 Urinalysis Test 01/15/25 12:44 Urine Color Yellow (Yellow) Urine Clarity Clear (Clear) Urine pH 5.5 (5.0-9.0) Urine Specific [place] 1.030 (1.001-1.035) Urine Protein Trace (Negative) H Urine Ketones Trace (Negative) Urine Blood Trace /uL (Negative) H Urine Nitrite Negative (Negative) Urine Bilirubin Negative (Negative) Urine Urobilinogen Normal mg/dL (Negative) Urine Leukocyte Esterase Negative /uL (Negative) Urine RBC 2 /hpf (0 - 4) Urine Microscopic WBC 2 /HPF (0-5) Urine Squamous Epithelial Cells Few /hpf (<5) Urine Bacteria Few /hpf (None Seen) H Urine Mucus Few (None Seen) Urine Glucose Normal mg/dL (Normal) Labs and/or images reviewed: Labs reviewed by me, Image(s) reviewed by me Assessment/Plan Assessment/Plan Severe iron deficiency anemia hemoglobin 7.0, improved to 9.8 after 2 unit of RBC transfusion, Mild gastritis and extensive of columnar epithelium 5 mm into distal esophagus by EGD by Dr. Geovanna Gotti, biopsy result pending test is negative History of use of Excedrin aspirin and ibuprofen Plan discussed with: Patient Date of Service: Jan 20, 2025 Billing Provider: KRISTOPHER BARRERA MD Common Visit Codes: [id number] INP/OBS CARE(HIGH) KRISTOPHER BARRERA MD Jan 20, 2025 08:27
--- NOTE | 2025-01-20 08:34 | DVHDS2 ---
Discharge Summary Date of Admission Jan 15, 2025 at 21:38 Date of Discharge: Jan 20, 2025 Admitting Diagnosis Generalized weakness Wounds: None Labs/Diagnostic Data: Laboratory Results Test 01/18/25 14:00 01/18/25 05:11 01/17/25 08:45 01/16/25 06:41 Prothrombin Time 10.4 sec (9.3-11.8) Prothrombin Time INR 0.98 (0.9-1.15) Iron Level 30 ug/dL (50-170) Folic Acid 6.15 ng/mL (>5.38) White Blood Count 5.3 10^3/uL (4.4-10.8) Red Blood Count 4.96 10^6/uL (4.0-5.20) Hemoglobin 10.1 g/dL (12.2-16.2) Hematocrit 32.3 % (36.0-46.0) Mean Corpuscular Volume 65.1 fL (80.0-100.0) Mean Corpuscular Hemoglobin 20.4 pg (28.0-32.0) Mean Corpuscular Hemoglobin Concent 31.3 g/dL (32.0-36.0) Red Cell Distribution Width 23.5 % (11.8-14.3) Platelet Count 316 10^3/uL (140-450) Mean Platelet Volume 8.1 fL (6.9-10.8) Neutrophils (%) (Auto) 63.0 % (37.0-80.0) Lymphocytes (%) (Auto) 24.7 % (10.0-50.0) Monocytes (%) (Auto) 7.4 % (0.0-12.0) Eosinophils (%) (Auto) 4.3 % (0.0-7.0) Basophils (%) (Auto) 0.6 % (0.0-2.0) Neutrophils # (Auto) 3.3 10 ^3/uL (1.6-8.6) Lymphocytes # (Auto) 1.3 10 ^3/uL (0.4-5.4) Monocytes # (Auto) 0.4 10 ^3/uL (0-1.3) Eosinophils # (Auto) 0.2 10 ^3/uL (0-0.8) Basophils # (Auto) 0 10 ^3/uL (0-0.2) Nucleated Red Blood Cells 0.2 % Total Iron Binding Capacity 423 ug/dL (250-425) Percent Iron Saturation 5.4 % (15-50) Vitamin B12 Level 252 pg/mL (211-911) Sodium Level 144 mmol/L (136-145) Potassium Level 3.6 mmol/L (3.5-5.1) Chloride Level 111 mmol/L (98-107) Carbon Dioxide Level 22 mmol/L (20-31) Anion Gap 11 (5-15) Blood Urea Nitrogen 9 mg/dL (9-23) Creatinine 0.69 mg/dL (0.550-1.02) Glomerular Filtration Rate Calc 127 mL/min (>90) BUN/Creatinine Ratio 13.0 (10.0-20.0) Serum Glucose 86 mg/dL (74-106) Calcium Level 9.4 mg/dL (8.7-10.4) Total Bilirubin 0.4 mg/dL (0.2-1.0) Aspartate Amino Transferase (AST) 8 U/L (<34) Alanine Aminotransferase (ALT) < 9 U/L (7-40) Alkaline Phosphatase 58 U/L (46-116) Total Protein 6.6 g/dL (5.7-8.2) Albumin 4.2 g/dL (3.2-4.8) Beta HCG, Quantitative < 1.5 mIU/mL (1.5-4.2) Test 01/15/25 12:47 01/15/25 12:44 Platelet Estimate Adequate Hypochromasia (manual) Marked Poikilocytosis (manual) Slight Anisocytosis (manual) Slight Microcytosis Marked Tear Drop Cells Few Ovalocytes Few Urine Color Yellow (Yellow) Urine Clarity Clear (Clear) Urine pH 5.5 (5.0-9.0) Urine Specific Harman 1.030 (1.001-1.035) Urine Protein Trace (Negative) Urine Ketones Trace (Negative) Urine Blood Trace /uL (Negative) Urine Nitrite Negative (Negative) Urine Bilirubin Negative (Negative) Urine Urobilinogen Normal mg/dL (Negative) Urine Leukocyte Esterase Negative /uL (Negative) Urine RBC 2 /hpf (0 - 4) Urine Microscopic WBC 2 /HPF (0-5) Urine Squamous Epithelial Cells Few /hpf (<5) Urine Bacteria Few /hpf (None Seen) Urine Mucus Few (None Seen) Urine Glucose Normal mg/dL (Normal) Other Laboratory Tests 01/17/25 08:45 01/16/25 06:41 Brief Hx & Hospital Course: 19-year-old female with no previous medical history came in for generalized weakness found to have iron-deficiency anemia hemoglobin 7.0 improved to 9.8 after 2 units RBC transfusion and stable . denies any GI bleed. No history of hematemesis melena or hematochezia. Also denies any gynecological complaints. No menorrhagia. Serum beta HCG negative. Pelvic ultrasound negative. EGD by Dr. Geovanna Gotti showed mild gastritis and 5 mm erosion of columnar epithelium into the distal esophagus biopsy result pending. Lab studies showed patient has iron-deficiency anemia. Labs ordered to rule out sickle cell disease result pending. She will follow up with the [facility] Dr. Morales as an outpatient for further workup on anemia. She will follow up with GI Dr. Geovanna Gotti as an outpatient. Prescription for iron tablets transmitted to the pharmacy and discharged. Consults/Reason for consult GI Dr. Geovanna Gotti Operations or Procedures EGD RBC transfusion Pelvic ultrasound Condition at Discharge: Fair Final Diagnosis/Problems List Severe iron deficiency anemia hemoglobin 7.0, improved to 9.8 after 2 unit of RBC transfusion, Mild gastritis and extensive of columnar epithelium 5 mm into distal esophagus by EGD by Dr. Geovanna Gotti, biopsy result pending test is negative History of use of Excedrin aspirin and ibuprofen Discharge Disposition: Home Discharge Instruct/Medications Diet: Regular Activity: Light activity Follow Up/Referral: Follow up with your primary Dr Follow up with the GI Dr. Geovanna Gotti in two weeks for the biopsy result Follow up with the Hematology Dr. Morales in two weeks for workup on chronic anemia Medications: Iron tablets Transmitted to [facility] 35 (Time taken for discharge summary 35 minutes) Discharge Statement: "Patient was advised to return to the ER or call 911 if any headaches, dizziness, shortness of breath, chest pain, abdominal pain, bleeding, fevers, or worsening of medical condition. Patient was counseled about treatment plan, medications, possible side effects, patientverbalized understanding. All questions were answered to the best of my ability. This discharge took greater then 30 minutes in planning, reviewing documentation, counseling the patient, and discussing with other team members." ASSESSMENT ASSESSMENT Hospital Course Uneventful Assessment Severe iron deficiency anemia hemoglobin 7.0, improved to 9.8 after 2 unit of RBC transfusion, Mild gastritis and extensive of columnar epithelium 5 mm into distal esophagus by EGD by Dr. Geovanna Gotti, biopsy result pending test is negative History of use of Excedrin aspirin and ibuprofen Date of Service: Jan 20, 2025 Billing Provider: KRISTOPHER BARRERA MD Common Visit Codes: 51133-LRK/OBS DISCH DAY >30min KRISTOPHER BARRERA MD Jan 20, 2025 08:34
[2025-01-20 09:00] VITALS: BP 91/42; PULSE 79; RESP 16; TEMP 98; O2SAT 98
--- NOTE | 2025-01-20 13:04 | DVHPN2 ---
Progress Note - Dictate Date Seen: Jan 20, 2025 (Late entryTime of visit 11:00 a.m.) Medical Necessity Reason Pt with a Central, PICC or Fol: No Subjective No new complaints Patient is tolerating diet vital signs Vital Sign Date Time Temp Pulse Resp B/P (MAP) Pulse Ox O2 Delivery O2 Flow Rate FiO2 01/20/25 09:00 98.0 79 16 91/42 (58) 98 98.0 01/20/25 07:30 Room Air* 0 21 Total Intake and Output 01/19/25 01/19/25 01/20/25 15:00 23:00 07:00 Intake Total 25 ml 0 ml 500 ml Balance 25 ml 0 ml 500 ml objective General Appearance: Alert, Oriented X3, Cooperative, No acute distress, mild distress, moderate distress, severe distress, Other Lungs: Clear to auscultation, Normal air movement, Other Cardiovascular: Regular rate, Normal S1, Normal S2, No murmurs, Gallops, Rubs, Other Abdomen: Normal bowel sounds, Soft, No tenderness, No hepatospenomegaly, No masses, Other laboratory and microbiology Laboratory Tests 01/17/25 08:45 01/16/25 06:41 Test 01/16/25 06:41 Range/Units Serum Glucose 86 74-106 mg/dL Problems(with codes): (1) Generalized weakness (2) Severe anemia Prognosis PLAN Discharge planning is in progress Patient will follow up in my office as an outpatient if she has any ongoing anemia Follow up with OBGYN for her menorrhagia Follow up with Hematology Oncology for further evaluation possible iron infusions Patient was advised to take oral iron supplements Dietary Evaluation Review Comments: iron and mvi supplementation. Monitor PO intake, FU in 3-5 days Expected Outcomes/Goals: improved nutrition status Plan discussed with: Patient CC Plasma Assessment Blood Product Administration S: [id number] CLOTILDE KERR MD Jan 20, 2025 13:04
== END 2025-01-20 11:23 | disposition home or self-care (01) | DRG 663 ==
LOC: ER 12:07 → OVERFLOW 21:38 → CENTRAL 01-16 18:02 → TELE-CENTR 01-20 02:15
PROVIDERS: ADMIT Family Medicine; ATTEND Family Medicine
PROC: 30233N1 Transfusion of Nonautologous Red Blood Cells into Peripheral Vein, Percutaneous Approach (ICD-10-PCS; principal; 2025-01-15)
PROC: 0DB98ZX Excision of Duodenum, Via Natural or Artificial Opening Endoscopic, Diagnostic (ICD-10-PCS; 2025-01-19)
PROC: 0DB68ZX Excision of Stomach, Via Natural or Artificial Opening Endoscopic, Diagnostic (ICD-10-PCS; 2025-01-19)
PROC: 0DB48ZX Excision of Esophagogastric Junction, Via Natural or Artificial Opening Endoscopic, Diagnostic (ICD-10-PCS; 2025-01-19)
DX: D50.9 Iron deficiency anemia, unspecified (principal); K29.71 Gastritis, unspecified, with bleeding
CPT/HCPCS: 36415; 43239; 76856; 80053; 81001; 82607; 82746; 83540; 83550; 84702; 85025; 85610; 86850; 86900; 86901; 86920; 96360; G0378; J2250